=== PATIENT | female | born 1950 | race Caucasian/White ===

== ENCOUNTER 2017-12-28 18:07 | Emergency (ER) | payer OTHER ==
[2017-12-28] MEDS: traMADol 50 MG TAB PO (23:04)
== END 2017-12-28 23:08 | disposition home or self-care (01) ==
LOC: FTE 18:07
DX: S99.922A Unspecified injury of left foot, initial encounter (principal); S99.912A Unspecified injury of left ankle, initial encounter; I12.9 Hypertensive chronic kidney disease with stage 1 through stage 4 chronic kidney disease, or unspecified chronic kidney disease; N18.9 Chronic kidney disease, unspecified; E11.22 Type 2 diabetes mellitus with diabetic chronic kidney disease; W23.0XXA Caught, crushed, jammed, or pinched between moving objects, initial encounter; Y92.9 Unspecified place or not applicable; Z79.84 Long term (current) use of oral hypoglycemic drugs
CPT/HCPCS: 73610; 73630-LT; 99283-25